=== PATIENT | female | born 1985 | race Caucasian/White ===

== ENCOUNTER 2018-09-22 23:40 | Outpatient (CLI) | payer OTHER, MEDICAID ==
[2018-09-23] MEDS ORDERED: NIFEdipine 10 MG CAPSULE PO STA (00:33)
[2018-09-23] MEDS ORDERED: LACTATED RINGERS 1,000 ML IV SCH (01:00)
[2018-09-23] MEDS ORDERED: NIFEdipine 10 MG CAPSULE PO ONE ×2 (01:06→02:05)
[2018-09-23] MEDS ORDERED: SODIUM CHLORIDE FLUSH 0.9% 10 ML SYRINGE ONE ×2 (01:21→01:35)
[2018-09-23] MEDS ORDERED: OSELTAMIVIR 75 MG CAPSULE PO SCH (02:00)
[2018-09-23] MEDS ORDERED: NIFEdipine ER 30 MG TABLET PO STA (02:02)
[2018-09-23 02:44] VITALS: BP 107/67
== END 2018-09-23 04:25 | disposition home or self-care (01) ==
LOC: WFO 23:40 → FBP 23:42 → WFO 09-23 04:25
PROVIDERS: ATTEND Obstetrics & Gynecology
DX: O98.813 Other maternal infectious and parasitic diseases complicating pregnancy, third trimester (principal); J10.1 Influenza due to other identified influenza virus with other respiratory manifestations; O62.9 Abnormality of forces of labor, unspecified; Z3A.49 Greater than 42 weeks gestation of pregnancy
CPT/HCPCS: 87275; 87276; 99213; A9270; J7120

== ENCOUNTER 2020-09-08 08:11 | Outpatient (CLI) | payer MEDICAID ==
[2020-09-08 15:05] LABS: BASOPHILS # (AUTO) 0.1 10^3/uL (0.0-0.1); BASOPHILS % (AUTO) 1.1 %; EOSINOPHILS # (AUTO) 0.1 10^3/uL (0.0-0.7); EOSINOPHILS % (AUTO) 1.9 %; HGB - HEMOGLOBIN 14.7 g/dL (12.0-16.0); LYMPHOCYTES # (AUTO) 2.2 10^3/uL (1.5-3.5); LYMPHOCYTES % (AUTO) 38.7 %; MEAN CORPUSCULAR HEMOGLOBIN 30.4 pg (27.0-31.0); MEAN PLATELET VOLUME 11.8 fL (7.9-10.8); MONOCYTES # (AUTO) 0.3 10^3/uL (0.0-1.0); NEUTROPHILS % (AUTO) 52.1 %; PLT - PLATELET COUNT 207 10^3/uL (130-450); RED BLOOD COUNT 4.84 10^6/uL (4.20-5.40); RED CELL DISTRIBUTION WIDTH 12.8 % (12.0-15.0); WHITE BLOOD COUNT 5.7 x10^3/uL (4.8-10.8)
[2020-09-08 15:17] LABS: ALBUMIN 4.7 g/dL (3.2-5.5); ALBUMIN/GLOBULIN RATIO 1.8 (1.0-2.2); BILIRUBIN,TOTAL 1.1 mg/dL (0.2-1.0); CALCIUM 9.7 mg/dL (8.5-10.3); CREATININE 0.9 mg/dL (0.4-1.0); POTASSIUM 4.9 mmol/L (3.5-5.0); TOTAL PROTEIN 7.3 g/dL (6.7-8.2)
[2020-09-08 15:31] LABS: T4 (THYROXINE) 6.85 ug/dL (6.09-12.23)
[2020-09-08 15:34] LABS: THYROID STIMULATING HORMONE 2.34 uIU/mL (0.34-5.60)
[2020-09-08 15:41] LABS: TOTAL T3 0.76 ng/mL (0.87-1.78)
[2020-09-08 20:16] LABS: ESTIMATED AVERAGE GLUCOSE 105 mg/dL (70-100); HEMOGLOBIN A1c% 5.3 % (4.27-6.07)
== END 2020-09-08 08:12 | disposition home or self-care (01) ==
LOC: LAB.S 08:11
PROVIDERS: ATTEND Registered Nurse
DX: Z13.228 Encounter for screening for other metabolic disorders (principal); Z13.29 Encounter for screening for other suspected endocrine disorder; Z13.0 Encounter for screening for diseases of the blood and blood-forming organs and certain disorders involving the immune mechanism; Z86.32 Personal history of gestational diabetes; R61 Generalized hyperhidrosis; G47.00 Insomnia, unspecified; R53.83 Other fatigue
CPT/HCPCS: 36415; 80050; 83036; 84436; 84480

== ENCOUNTER 2020-11-07 09:44 | Outpatient (CLI) | payer MEDICAID ==
--- NOTE | 2020-11-07 10:42 | Ultrasound Report ---
PROCEDURE: Pelvic w/Transvaginal INDICATIONS: MENORRHAGIA TECHNIQUE: Real-time scanning was performed of the pelvic organs, with image documentation. Additional endovagi nal scanning was necessary due to incomplete visualization of the adnexal and endometrial structures by transabdominal scanning. COMPARISON: None. FINDINGS: Trace amount of simple free fluid. Uterus: Uterus is retroflexed and normal in size at 9.7 x 5.1 x 5.9 cm. The endometrium measures 10 mm in combined thickness. Ovaries: The right ovary measures 2.3 x 1.8 x 2.3 cm. The left ovary measures 2.2 x 1.5 x 1.8 cm. No suspicious cystic or solid masses. Dominant follicle noted within the right ovary. Bilateral physiol ogic follicles. IMPRESSION: Retroflexed uterus, otherwise unremarkable appearance of the uterus and ovaries. Trace amount of pelvic free fluid, likely physiologic. Reviewed by: Rajinder Louis DO on 11/07/2020 9:41 AM MARY Approved by: Rajinder Louis DO on 11/07/2020 9:41 AM MARY Station ID: [id number]
== END 2020-11-07 09:45 | disposition home or self-care (01) ==
LOC: DI 09:44
PROVIDERS: ATTEND Advanced Practice Midwife
DX: N92.0 Excessive and frequent menstruation with regular cycle (principal)

== ENCOUNTER 2021-08-31 07:52 | Day surgery (SDC) | payer OTHER, MEDICAID ==
[~2021-08-31 07:52] MED LIST: ACETAMINOPHEN 500 MG TABLET PO ONE; CELECOXIB 100 MG CAPSULE PO ONE; GABAPENTIN 400 MG CAPSULE ONE
== END 2021-08-31 07:53 | disposition home or self-care (01) ==
LOC: SDS 07:52
PROVIDERS: ATTEND Obstetrics & Gynecology
DX: Z53.9 Procedure and treatment not carried out, unspecified reason (principal)